=== PATIENT | male | born 1990 | race Two or more races ===

== ENCOUNTER 2018-09-17 13:18 | Emergency (ER) | payer SELFPAY ==
[~2018-09-17] VITALS: Ht 157.5 cm; Wt 59.0 kg
[2018-09-17] MEDS ORDERED: HYDROCODONE/ACETAMINOPHEN 5/325MG TABLET PO STA (14:12)
[2018-09-17] MEDS ORDERED: LIDOCAINE HCL/PF 1% 10 MG/ML 5ML VIAL IJ ONE (14:15)
[2018-09-17] MEDS ORDERED: TETANUS, DIPHTHERIA, PERTUSSIS VAC/PF 0.5ML (>7YR OLD) IM ONE (14:15)
[2018-09-17] MEDS ORDERED: CEFAZOLIN 1000MG PREMIX 50 ML IV ONE (15:00)
[2018-09-17 17:40] VITALS: BP 120/75
== END 2018-09-17 18:30 | disposition short-term general hospital (02) ==
LOC: ER 13:54
DX: S82.491B Other fracture of shaft of right fibula, initial encounter for open fracture type I or II (principal); S82.54XB Nondisplaced fracture of medial malleolus of right tibia, initial encounter for open fracture type I or II; F17.200 Nicotine dependence, unspecified, uncomplicated; V00.131A Fall from skateboard, initial encounter; Y93.51 Activity, roller skating (inline) and skateboarding; Y92.488 Other paved roadways as the place of occurrence of the external cause
CPT/HCPCS: 29515; 73590; 73620; 90471; 90715; 96365; 99291; J0690; J3490